=== PATIENT | female | born 1975 | race Caucasian/White ===

== ENCOUNTER 2019-08-30 09:15 | Outpatient (CLI) | payer BC, SELFPAY ==
--- NOTE | ~2019-08-30 | MM_ITS ---
EXAMINATION: MM screening [facility] BI w hailey HISTORY: Screening mammogram TECHNIQUE: Craniocaudal and mediolateral oblique 3-D tomosynthesis images were obtained and synthetic 2-D images were generated. CAD analysis was submitted and interpreted. COMPARISON: 08/25/2018, 08/21/2017 and lateral digital screening mammogram examinations BREAST PARENCHYMAL COMPOSITION: There are scattered areas of fibroglandular density. FINDINGS: There is no evidence of suspicious mass, calcification, or architectural distortion to sugg est malignancy in either breast. There has been no suspicious interval change. IMPRESSION: 1. No mammographic evidence of malignancy. 2. Recommend routine screening mammography in one year. BI-RADS Category 1: Negative Reviewed, dictated and finalized at location B. VISUALIZATION DEVELOPER
== END 2019-08-30 09:16 | disposition home or self-care (01) ==
LOC: ANHIMG 09:18
PROVIDERS: Visit Provider Obstetrics & Gynecology
DX: Z12.31 Encounter for screening mammogram for malignant neoplasm of breast (principal)
CPT/HCPCS: 77063; 77067

== ENCOUNTER 2020-09-01 10:33 | Outpatient (CLI) | payer BC, SELFPAY ==
--- NOTE | ~2020-09-01 | MM_ITS ---
EXAMINATION: MM screening [facility] BI w hailey HISTORY: Screening mammogram TECHNIQUE: Craniocaudal and mediolateral oblique 3-D tomosynthesis images were obtained and synthetic 2-D images were generated. CAD analysis was submitted and interpreted. COMPARISON: 08/30/2019, 08/25/2018, 08/21/2017 BREAST PARENCHYMAL COMPOSITION: The breasts are heterogeneously dense, which may obscure small masses . FINDINGS: There is no evidence of suspicious mass, calcification, or architectural distortion to sugg est malignancy in either breast. There has been no suspicious interval change. IMPRESSION: 1. No mammographic evidence of malignancy. 2. Recommend routine screening mammography in one year. BI-RADS Category 1: Negative Reviewed, dictated and finalized at location A. C SOFTWARE DEVELOPER
== END 2020-09-01 10:34 | disposition home or self-care (01) ==
LOC: ANHIMG 10:36
PROVIDERS: PCP Family Medicine; Visit Provider Obstetrics & Gynecology
DX: Z12.31 Encounter for screening mammogram for malignant neoplasm of breast (principal)
CPT/HCPCS: 77063; 77067

== ENCOUNTER 2021-11-08 12:31 | Outpatient (CLI) | payer BC, SELFPAY ==
[2021-11-08 13:16] LABS: Hematocrit 41.3 % (37.0-47.0); Hemoglobin 14.1 g/dL (12.0-15.0)
== END 2021-11-08 12:32 | disposition home or self-care (01) ==
PROVIDERS: PCP Family Medicine; Visit Provider Obstetrics & Gynecology
DX: Z01.812 Encounter for preprocedural laboratory examination (principal); N92.6 Irregular menstruation, unspecified
CPT/HCPCS: 36415; 85014; 85018

== ENCOUNTER 2021-11-16 00:55 | Day surgery (SDC) | payer BC, SELFPAY ==
[2021-11-08 11:25] VITALS: BMI 35.7
--- NOTE | 2021-11-08 11:36 | PC.NURSE ---
Report to the Outpatient Waiting Room, entrance under the green pavilion located off [facility], at time 7:00 on date 11/16/21. OR Time: 9:00. - You and your visitor will be asked a series of questions to screen for COVID 19 for your protection. - A mask is required within the hospital. One visitor will be allowed to accompany the patient into the hospital. Patients visitor will be instructed to remain with patient at all times or leave the building. We will allow the visitor to come back to the postoperative area when patient is ready. Preoperative COVID Testing Requirements: TO E-MAIL COPY OF POSITIVE TEST No COVID Test needed if: (proof is required; if not received patient will have Rapid Test prior to entry) - Patient has received COVID Vaccine at least 14 days prior to procedure date or - Patient has positive COVID test result within last 90 days of surgery date. COVID Test needed if above criteria is not met Patients may have clear liquids (water, carbonated beverages, clear teas, apple juice) until 3 hours prior to surgery (6:00) with a maximum of 20 ounces. - No food from midnight until time of surgery Take the following medications with a SIP of water the morning of surgery: AMLODIPINE Medications to discontinue per physician: VITAMINS/SUPPLEMENTS Date to take last dose: 11/12/21 Please no make-up, nail sinhala, hairspray, perfume, deodorant, or body powder the day of surgery. No jewelry (including any body piercings) or valuables the day of surgery, leave them at home. Please take a shower or bath the night before, or the morning of, surgery with an antibacterial soap. Wear comfortable, loose fitting clothing. - Jewelry must be removed prior to entering the operating room. Rings and piercings that are not removed may be cut off. - The hospital will not accept responsibility for valuables. - Please leave all valuables, including medications, at home the day of surgery. If you are going home after surgery, a licensed drivers' cash clerk must drive you home. - NO public transportation without another adult. - We recommend that an adult stay with you for 24 hours following discharge. - We also recommend that you do not drive, make important decision, drink alcoholic beverages, or take any drugs that were not prescribed by your health care provider for at least 24 hours after your discharge time. Follow any additional instructions given to you from your surgeon. Telephone instructions given to EFREN ALMANZA and asked if any additional questions and then verbalized understanding. Patient advised to call surgeon office or pre surgery nurse liaison [phone] if any additional questions.
--- NOTE | 2021-11-14 07:53 | P.HP_ITS ---
H&P: HPI History of Present Illness Date/Time: 11/14/21 07:53 This pleasant 45-year-old female status post tubal is admitted for hysteroscopy dilatation curettage for irregular bleeding suspected uterine polyp. She underwent ultrasound after medical therapy is not helpful for bleeding. There appears to be a vascular area consistent with probable polyp. Risks and benefits reviewed. She received the ACOG handout entitled hysteroscopy as well as dilatation curettage respectively. She had all questions answered and asked to proceed Chief Complaint: Excessive vaginal bleeding Review of Systems Review of Systems: All systems reviewed & are unremarkable except as noted in HPI and below [facility] Social History Social History Smoking status: Never smoker Alcohol intake: never Substance use: never Substance use type: does not use Spiritual care concerns: No Meds Home Medications and Allergies Home Medications Medication Instructions Recorded Confirmed Type amlodipine 10 mg PO DAILY 11/08/21 11/08/21 History multivitamin 1 tablet PO DAILY 11/08/21 11/08/21 History Allergies Allergy/AdvReac Type Severity Reaction Status Date / Time No Known Allergies Allergy Verified 11/08/21 11:24 Exam Const: General: no acute distress Eyes: General: appearance normal, both eyes and all related structures Neck: Neck: supple and no JVD Thyroid: thyroid normal Resp: Effort & Inspection: normal respiratory effort Auscultation: clear to auscultation bilaterally Cardio: Rate: regular rate Rhythm: regular rhythm GI: Inspection: non-distended GI Palp: Yes Soft to palpation, No Tenderness to palpation present (GI) and No Guarding due to palpation present (GI) Auscultation: normal bowel sounds : External Female Exam: normal external appearance Speculum Exam - Vagina: normal appearance of the vagina and vaginal bleeding Speculum Exam - Cervix: normal appearance of the cervix Bimanual exam- vagina & uterus: enlarged Bimanual Exam- Adnexa, other: normal adnexae Skin: General skin exam: no rashes or lesions noted Extrem: General: normal to inspection and no edema Psych: Mental Status: mental status grossly normal Affect: normal affect Assessment and Plan Additional Plan Impression: Vaginal bleeding secondary dissect suspected polyp Plan: Hysteroscopy/dilatation curettage
--- NOTE | 2021-11-15 12:57 | WPDANESEPPF ---
Anes - Initial Pre Proc Eval Procedure: Operation Date: 11/16/21 09:00 Proposed Procedures p Hysteroscopy Dilation and Curettage, Polypectomy - Gamal Batista MD Date/Time: 11/15/21 12:57 Surgeon: Gamal Batista MD Pre Op Diagnosis: irregular bleeding, uterine polyps Patient Data Age: 45 Gender: F Height: 1.69 m Weight: 102.06 kg Allergies Allergy/AdvReac Type Severity Reaction Status Date / Time No Known Allergies Allergy Verified 11/16/21 07:13 Home Medications Medication Instructions Recorded Confirmed Type amlodipine 10 mg PO DAILY 11/08/21 11/16/21 History multivitamin 1 tablet PO DAILY 11/08/21 11/16/21 History hydrocodone-acetaminophen 1 tablet PO Q4H PRN #20 tablet 11/16/21 Rx Patient hx anesthesia problems: none Family hx anesthesia problems: none Results Review: All pre-operative results and documents have been reviewed as part of the pre-operative evaluation. PMFSH Past Medical History Medical History (Updated 11/16/21 @ 07:20 by Gamal Batista MD) Hypertension Migraine Surgical History Surgical History (Updated 11/15/21 @ 12:57 by Harinder Denson DO) History of tubal ligation Social History Social History Smoking status: Never smoker Alcohol intake: never Substance use: never Substance use type: does not use Living arrangements: with family Spiritual care concerns: No Anes - Eval Final PreProcedure Day of Procedure 11/15/21 12:57 Patient weight: obese Heart: regular rate and rhythm Lungs: clear to auscultation and normal air movement Airway: Mallampati scale class II Neurological: alert and oriented Last oral intake: >/= 8 hours ASA classification: III Emergent: no Anesthetic plan: proceed Anesthesia type and monitoring: general GIVS and standard monitoring Results Review: All pre-operative results and documents have been reviewed as part of the pre-operative evaluation. Informed Consent: The patient's anesthetic plan and its attendant risks and benefits were discussed with the patient/family/POA. Questions were solicited and answers provided to the satisfaction of the patient/family/POA.
[2021-11-16] MEDS: ACETAMINOPHEN 500 MG TABLET 1000 MG PO (07:18)
--- NOTE | 2021-11-16 07:19 | WPDHPUPDATE1 ---
History and Physical Update Update Date/Time: 11/16/21 07:19 History and Physical has been reviewed, including an updated exam of the patient. There are NO changes in the patient's condition. Risks, benefits, and alternatives have been discussed and questions answered. Patient agrees to proceed with procedure.
[2021-11-16 07:23] VITALS: BP 168/87; PULSE 90; RESP 16; TEMP 36.2; O2SAT 100
[2021-11-16] MEDS: LACTATED RINGERS 1,000 ML 30 ML IV CONT (07:49)
[2021-11-16] MEDS: KETOROLAC 30 MG/ML VIAL (*BKC) IV PUSH (09:11)
--- NOTE | 2021-11-16 09:14 | W.PM.PROC2 ---
Procedure Note - Detailed Date of Procedure 11/16/21 Pre-op Diagnosis irregular bleeding, uterine polyps Post-op Diagnosis Same Procedure Performed Hysteroscopy/dilatation curettage lacks polypectomy Surgeon Gamal Batista MD Anesthesia MAC and Local Indications This is a 45-year-old female with suspected polyp with heavy bleeding Findings Uterus sounded to 10cm. Small uterine polyp and thickened endometrium Description of Procedure Patient was prepped draped sterile fashion placed in dorsal lithotomy position. Under excellent IV sedation weighted speculum placed in posterior fornix vagina. Anterior lip of the cervix grasped with a single-tooth tenaculum. None 2.5cc of 1% xylocaine anesthesia placed at 2, 4, 8, 10:00 a.m. of the cervix. Uterus sounded to 10cm. Serial dilatation with fragmented dilators performed followed by passage of the 5. Mm hysteroscope using normal saline as visualizing medium. Uterine polyps were seen there was a fair amount of blood inside the uterus. The polyp forceps was passed and the polyps removed piecemeal. The uterus was then scraped over the entire 360?. When a good grating sound was heard the term the procedure was terminated sponge, needle, instrument counts were correct. There were no immediate complications. Estimated Blood Loss 5 Drains No Packing No Pathology Yes Complications No immediate complications Condition Stable Disposition PACU
[2021-11-16 09:20] VITALS: BP 133/78; PULSE 74; RESP 16; O2SAT 91
[2021-11-16 09:50] VITALS: BP 137/78; PULSE 65
== END 2021-11-16 10:20 | disposition home or self-care (01) ==
PROVIDERS: PCP Family Medicine; Visit Provider Obstetrics & Gynecology
PROC: 0U5B8ZZ Destruction of Endometrium, Via Natural or Artificial Opening Endoscopic (ICD-10-PCS; CPT 58563; principal; 2021-11-16 09:00)
DX: N92.6 Irregular menstruation, unspecified (principal); N84.0 Polyp of corpus uteri; N92.4 Excessive bleeding in the premenopausal period; I10 Essential (primary) hypertension; E66.9 Obesity, unspecified; Z68.35 Body mass index [BMI] 35.0-35.9, adult
CPT/HCPCS: 58558; 88305; A9270; J1100; J1885; J2250; J2405; J2704; J3010; J7030; J7120

== ENCOUNTER 2022-02-08 07:36 | Outpatient (CLI) | payer BC, SELFPAY ==
--- NOTE | ~2022-02-08 | MM_ITS ---
EXAMINATION: MM screening [facility] BI w hailey HISTORY: Screening mammogram TECHNIQUE: Craniocaudal and mediolateral oblique 3-D tomosynthesis images were obtained and synthetic 2-D images were generated. CAD analysis was submitted and interpreted. COMPARISON: 09/01/2020, 08/30/2019, 08/25/2018 BREAST PARENCHYMAL COMPOSITION: The breasts are heterogeneously dense, which may obscure small masses . FINDINGS: There is no suspicious mass, calcification, or architectural distortion to suggest malignan cy in either breast. There has been no suspicious interval change. IMPRESSION: 1. No mammographic evidence of malignancy. 2. Recommend routine screening mammography in one year. BI-RADS Category 1: Negative Reviewed, dictated and finalized at location A.
== END 2022-02-08 07:37 | disposition home or self-care (01) ==
LOC: ANHIMG 07:37
PROVIDERS: PCP Family Medicine; Visit Provider Obstetrics & Gynecology
DX: Z12.31 Encounter for screening mammogram for malignant neoplasm of breast (principal)
CPT/HCPCS: 77063; 77067

== ENCOUNTER 2024-10-13 07:44 | Outpatient (CLI) | payer BC, SELFPAY ==
--- NOTE | ~2024-10-13 | MM_ITS ---
EXAMINATION: MM screening [facility] BI w hailey HISTORY: Screening TECHNIQUE: Craniocaudal and mediolateral oblique 3-D tomosynthesis images were obtained and synthetic 2-D images were generated. CAD analysis was submitted and interpreted. COMPARISON: Comparison to multiple prior studies sequentially, with oldest reviewed study dated 2017. BREAST PARENCHYMAL COMPOSITION: Not dense: There are scattered areas of fibroglandular density. FINDINGS: There is a focal asymmetry in the central aspect of the right breast, anterior third, on CC view. The left breast is stable without evidence for malignancy. IMPRESSION: 1. Focal right breast asymmetry. 2. Additional mammographic views and possible breast ultrasound are recommended. BI-RADS Category 0: Incomplete: Needs additional imaging evaluation. Reviewed, dictated and finalized at location [] IMPRESSION: 1. Focal right breast asymmetry. 2. Additional mammographic views and possible breast ultrasound are recommended . BI-RADS Category 0: Incomplete: Needs additional imaging evaluation.
--- OUTSIDE RECORDS SUMMARY | 2024-10-13 07:49 | XMS_ITS | Encounter Summary ---
Author Organization [facility] Address [address] [place] [id number] Care Team Providers Care Rag Inspector Name Role Phone Zan Danielle MD Primary Care Provider Reason for Visit * Reason Onset Date Comments Problem 09/07/2024 Encounter Details Date Type Department Care Team (Late st Contact Info) Description 09/07/2024 MyChart Message Enc [facility] Family Medicine - [place] [address], [address] [place] [address] Zan Danielle MD [address] [place] [address] levoFLOXacin 500 MG tablet Social History Tobacco Use Types Packs/Day Years Used Date Smoking Tobacco: Never Passive Smoke Exposure: Never Smokeless Tobacco: Never Alcohol Use Standard Drinks/Week Comments Not Currently 0 (1 standard drink = 0.6 oz pur e alcohol) PHQ-2 Answer Date Recorded Patient Health Questionnaire-2 Score 0 09/06/2024 Comments No Sex and Gender Information Value Date Recorded Sex Assigned at Not on file Legal Sex Female 9:14 PM CDT Gender Identity Not on file Sexual Orientation Not on file documented as of this encounter Progress Notes * Airam Constantino - 09/09/2024 12:10 PM CST Patient calling on status of this request. RING DIRECTOR documented in this encounter Plan of Treatment Not on file documented as of this encounter Visit Diagnoses Not on filedocumented in this encounter Additional Health Concerns Assessment Noted Time PHQ-9 Depression Total Score: 0 08/11/19 25 9:03 AM CATERING DIRECTOR documented as of this encounter Care Teams Rag Inspector Relationship Specialty Start Date End Date Zan Danielle MD [address] [address] PCP - General FAMILY PRACTICE 12/31/21 documented as of this encounter
--- OUTSIDE RECORDS SUMMARY | 2024-10-13 07:49 | XMS_ITS | Clinical Summary ---
Author Organization [facility] Address [address] [place] [address] Care Team Providers Care County Administrator Name Role Phone Zan Danielle MD Primary Care Provider Allergies Active Allergy Reactions Criticality Noted Date Comments Kiwi Fruit Unknown 04/03/2016 Medications lisinopril (PRINIVIL) 20 MG tabletIndications :Primary hypertension TAKE 1 TABLET(20 MG) BY MOUTH DAILY 90 tablet 3 4 Active predniSONE (DELTASONE) 10 mg tabletIndications :Non-recurrent acute suppurative otitis media of right ear without spontaneous rupture of tympanic membrane 3 TABS PO DAILY X 3 DAYS, THEN 2 TABS PO DAILY X 3 DAYS, THEN 1 TAB PO DAILY X 3 DAYS. 18 tablet 5 Active fluticasone propionate (FLONASE) 50 MCG/ACT nasal sprayIndications: Chronic nasal congestion 1 spray by Each Nostril route daily. 16 g 11 5 Active levoFLOXacin (LEVAQUIN) 500 MG tabletIndications :Non-recurrent acute suppurative otitis media of right ear without spontaneous rupture of tympanic membrane Take 1 tablet (500 mg total) by mouth daily for 10 days. 10 tablet 5 09/16/19 25 Active Problems Problem Noted Date Diagnosed Date Impaired fasting glucose 03/10/2024 Non-recurrent acute serous otitis media of both ears 03/11/2022 Pure hypercholesterolemia 01/30/2022 Class 2 obesity due to exces s calories without serious comorbidity with body mass index (BMI) of 36.0 to 36.9 in adult 12/31/2021 Primary hypertension 12/31/2021 Resolved Problems Problem Noted Date Diagnosed Date Resolved Date Routine general medical exam ination at a health care facility 03/10/2024 03/15/2024 Plantar fasciitis 04/30/2016 08/11/2024 Pes equinus, acquired 04/10/20162021 Encounters Date Type Department Care Team Description 09/07/2024 MyChart Message Enc [facility] [address], [address] [place] [phone] Zan Danielle MD levoFLOXacin 500 MG tablet 09/06/2024 10:00 AM CONTACT LENS MANUFACTURER Office Visit [facility] [address], [address] [place] [phone] Zan Danielle MD Acute Note (Congestion, no cold and flu symptoms, pressure in ear) 09/06/2024 Scan HEALTH INFO SRVCS Scanned, Doc Med Group 09/06/2024 Travel 08/11/2024 9:00 AM CONTACT LENS MANUFACTURER Office Visit [facility] [address], [address] [place] [phone] Zan Danielle MD Heart Problem (Sinus congestion, tonsils swollen for the past 2 days.) 08/11/2024 Travel from Last 3 Months Social History Tobacco Use Types Packs/Day Years Used Date Smoking Tobacco: Never Passive Smoke Exposure: Never Smokeless Tobacco: Never Tobacco Cessation:Counseling Given: No Alcohol Use Standard Drinks/Week Comments Not Currently 0 (1 standard drink = 0.6 oz pur e alcohol) PHQ-2 Answer Date Recorded Patient Health Questionnaire-2 Score 0 09/06/2024 Comments No Sex and Gender Information Value Date Recorded Sex Assigned at Not on file Legal Sex Female 9:14 PM CDT Gender Identity Not on file Sexual Orientation Not on file Last Filed Vital Signs Vital Sign Reading Time Taken Comments Blood Pressure 122/80 09/06/2024 9:57 AM CONTACT LENS MANUFACTURER Pulse 77 09/06/2024 9:57 AM CONTACT LENS MANUFACTURER Temperature 36.2 C (97.2 F) 09/06/2024 9:57 AM CONTACT LENS MANUFACTURER Respiratory Rate 18 08/11/2024 9:02 AM CONTACT LENS MANUFACTURER Oxygen Saturation 98% 09/06/2024 9:57 AM CONTACT LENS MANUFACTURER Inhaled Oxygen Concentration - - Weight 102.8 kg (226 lb 9.6 oz) 09/06/2024 9:57 AM CONTACT LENS MANUFACTURER Height 167.6 cm (5' 5.98 ) 08/11/2024 9:02 AM CS T Body Mass Index 36.59 08/11/2024 9:02 AM CONTACT LENS MANUFACTURER Plan of Treatment Health Maintenance Due Date Last Done Comments Cervical Cancer Screening Pa p Smear (Age 30 to 64) Every 3 Years 1976 Colorectal Cancer Screening Colonoscopy (10 Years) 1976 Hepatitis C 1994 DTaP, Tdap and Td Vaccines ( 1 - Tdap) 12/31/1995 Hepatitis B Vaccines (1 of 3 - 19+ 3-dose series) 12/31/1995 Cervical Cancer Screening Pa p with HPV Testing (Age 30 to 64) Every 5 Years 2006 Cervical Cancer Screening wi th HPV 2006 Mammogram Screening 02/09/2024 02/08/2022 COVID-19 Vaccine ( - 2023-2 5 season) 2024 Influenza Adult (#1) 2024 Annual Physical 03/10/2025 03/10/2024, 03/26/2023 PHQ-2 (Physician [place]) Completed 09/06/2024 Meningococcal B Vaccine Aged Out No l onger eligible based on patient's age to complete this topic Meningococcal Vaccine Aged Out No ayse lena eligible based on patient's age to complete this topic Pneumococcal Vaccine: Pediatrics (0 to 5 Years) and At-Risk Patients (6 to 64 Years) Aged Out No longer eligible b ased on patient's age to complete this topic RSV Immunizations Under 20 Months Aged Out No longer eligible b ased on patient's age to complete this topic Procedures Procedure Name Priority Date/Time Associated Diagnosis Comments CORONAVIRUS (COVID-19) INFLUENZA A & B ANTIGEN IA PANEL Routine 08/11/2024 Acute cough MAMMOGRAM GENERIC (SCAN ORDER) 02/08/2022 from Last 3 Months or Most Recently Relevant to Health Maintenance Results * CORONAVIRUS (COVID-19) INFLUENZA A & B ANTIGEN IA PANEL (08/11/2024) CORONAVIRUS ANTIGEN IA NEGATIVE NEGATIVE [facility] [place] [place] INFLUENZA A NEGATIVE NEGATIVE [facility] [place] [place] INFLUENZA B NEGATIVE NEGATIVE [facility] [place] [place] Internal Control: VALID VALID [facility] [place] [place] NASAL STRUCTURE / Unknown 08/11/2024 Zan Danielle MD MICROBIOLOGY - GENERAL ORDERABLES Final Result [facility] [place] [address] [place] [address], * MAMMOGRAM GENERIC (02/08/2022) Anatomical Region Laterality Modality Other 02/08/2022 Narrative 02/08/2022 Ordered by an unspecified provider. us Documents Scanned SCANNING Final Result from Last 3 Months or Most Recently Relevant to Health Maintenance Insurance [facility] Care Teams County Administrator Relationship Specialty Start Date End Date Zan Danielle MD [address] [place] [address] PCP - General FAMILY PRACTICE 12/31/21
--- OUTSIDE RECORDS SUMMARY | 2024-10-13 07:49 | XMS_ITS | Encounter Summary ---
Author Organization [facility] Address [address] [place] [address] Care Team Providers Care Starch Treating Assistant Name Role Phone Christopher Palumbo MD Primary Care Provider [phone] Zan Danielle MD Primary Care Provider Encounter Details Date Type Department Care Team (Late st Contact Info) Description 05/01/2021 [employer] Message [facility] Patient Accounts [address] [place] [address] [facility] Provider Financial Assistance application Social History Tobacco Use Types Packs/Day Years Used Date Smoking Tobacco: Never Smokeless Tobacco: Never Alcohol Use Standard Drinks/Week Comments Not Currently 0 (1 standard drink = 0.6 oz pur e alcohol) Comments No Sex and Gender Information Value Date Recorded Sex Assigned at Not on file Legal Sex Female 9:14 PM CDT Gender Identity Not on file Sexual Orientation Not on file COVID-19 Exposure Response Date Recorded In the last month, have you been in contact with someone who was confirmed or suspected to have Coronavirus / COVID-19? Yes 05/02/2021 12:03 PM CDT documented as of this encounter Plan of Treatment Not on file documented as of this encounter Visit Diagnoses Not on filedocumented in this encounter Additional Health Concerns Infection Onset Date Last Indicated Resolved Time COVID-19 Rule Out 05/02/2021 05/02/2021 05/04/2021 1:10 AM CDT COVID-19 Rule Out 05/09/2021 05/09/2021 05/10/2021 1:51 PM CDT COVID-19 Rule Out 07/12/2024 07/12/202407/12/2024 10:20 AM ELECTRICAL JOURNEYMAN COVID-19 Rule Out 08/11/2024 08/11/2024 08/11/2024 9:47 AM ELECTRICAL JOURNEYMAN documented as of this encounter Care Teams Starch Treating Assistant Relationship Specialty Start Date End Date Christopher Palumbo MD PCP - General FAMILY PRACTICE 12/31/19 12/30/21 Zan Danielle MD [address] [facility] [address] [place] [address] PCP - General FAMILY PRACTICE 12/31/21 documented as of this encounter
== END 2024-10-13 07:45 | disposition home or self-care (01) ==
LOC: ANHIMG 07:46
PROVIDERS: PCP Family Medicine; Visit Provider Obstetrics & Gynecology
DX: Z12.31 Encounter for screening mammogram for malignant neoplasm of breast (principal); Z98.82 Breast implant status; R92.8 Other abnormal and inconclusive findings on diagnostic imaging of breast
CPT/HCPCS: 77063; 77067

== ENCOUNTER 2024-10-21 13:26 | Outpatient (CLI) | payer BC, SELFPAY ==
--- NOTE | ~2024-10-21 | MMUS_ITS ---
EXAMINATION: MM diagnostic eleni RT w hailey, US breast RT limited HISTORY: 48-year-old woman with a significant family history of breast cancer (diagnosed in the patie nts maternal aunt, premenopausal) presents for diagnostic evaluation of a focal asymmetry in the cent ral aspect of the right breast, anterior third, detected primarily on the CC view on screening mammog renaldo dated 10/13/2024. TECHNIQUE: Additional 3-D tomosynthesis images of right breast were performed and synthetic 2-D image s were generated. CAD analysis was submitted and interpreted. High resolution focused right breast ultrasound was performed. COMPARISON: 10/13/2024 and dating back to 08/30/2019. BREAST PARENCHYMAL COMPOSITION:Not Dense. There are scattered areas of fibroglandular density. FINDINGS: MAMMOGRAPHIC FINDINGS: Multiple irregularly shaped foci, some tubular, persist with spot compression in the central aspect o f the right breast for which focused ultrasound will be performed. ULTRASOUND: At the 8:00 position of the right breast approximately 4 cm from the nipple is a reniform shaped focu s of decreased echogenicity measuring 4.0 x 2.6 x 1.6 mm, likely representing an intramammary lymph n ode for which no further follow-up is needed. At the 9:00 position of the right breast approximately 4 cm from the nipple is a mostly well-circumsc ribed anechoic avascular focus measuring 3 x 3 x 2.5 mm. No posterior acoustic shadowing or enhanceme nt is identified. Despite the lack of posterior echogenicity, this focus has the appearance of a simp le cyst for which no further follow-up is needed. At the 10:00 position of the right breast approximately 3 cm from the nipple are a cluster of irregul pia-shaped, somewhat tubular, anechoic avascular structures measuring a maximal medial to lateral me asurement of 8 mm with the bulbous portion measuring 3.4 mm x 5.3 mm (anterior to posterior x cranial to caudal dimension), possibly representing ductal ectasia. This shape, corresponds to the abnormali ties seen on mammography. Sonographic evaluation of the remainder of the upper, primarily outer right breast demonstrates other das benign fibroglandular structures without cystic or solid lesion of concern. IMPRESSION: Findings within the upper outer quadrant of the right breast, which are most likely benign for which short-term sonographic follow-up is recommended for confirmation of their benignity versus ultimate r esolution. Focused right breast ultrasound in 6 months is recommended. BI-RADS category 3, probably benign findings. Reviewed, dictated and finalized at location A. IMPRESSION: Findings within the upper outer quadrant of the right breast, which are most li vashti benign for which short-term sonographic follow-up is recommended for confi rmation of their benignity versus ultimate resolution. Focused right breast ultrasound in 6 months is recommended. BI-RADS category 3, probably benign findings.
--- OUTSIDE RECORDS SUMMARY | 2024-10-21 14:17 | XMS_ITS | Clinical Summary ---
Author Organization [facility] Address [address] [place] [address] Care Team Providers Care Pillar Worker Name Role Phone Zan Danielle MD Primary [...] route daily. 16 g 11 5 Active Active Problems Problem Noted Date Diagnosed Date [...] Plantar fasciitis 04/30/2016 08/11/2024 Pes equinus, acquired 04/10/2016 07/06/ 2022 Encounters Date Type Department Care Team Description 09/07/2024 MyChart Message Enc [facility] [address] [facility] [address], [address] [place] [phone] Zan Danielle MD levoFLOXacin 500 MG tablet 09/06/2024 10:00 AM MARKER HAND Office Visit [facility] [address] [facility], [address] [place] [phone] Zan Danielle MD Acute Note (Congestion, no cold and flu symptoms, pressure in ear) 09/06/2024 Scan [facility] SRVCS Scanned, [facility] 09/06/2024 Travel 08/11/2024 9:00 AM MARKER HAND Office Visit [facility] [address] [facility], [address] [place] [phone] Zan Danielle MD Heart Problem (Sinus congestion, [...] Comments Blood Pressure 122/80 09/06/2024 9:57 AM MARKER HAND Pulse 77 09/06/2024 9:57 AM MARKER HAND Temperature 36.2 C (97.2 F) 09/06/2024 9:57 AM MARKER HAND Respiratory Rate 18 08/11/2024 9:02 AM MARKER HAND Oxygen Saturation 98% 09/06/2024 9:57 AM MARKER HAND Inhaled Oxygen Concentration - - Weight 102.8 kg (226 lb 9.6 oz) 09/06/2024 9:57 AM MARKER HAND Height 167.6 cm (5' 5.98 ) 08/11/2024 9:02 AM CS T Body Mass Index 36.59 08/11/2024 9:02 AM MARKER HAND Plan of Treatment Health Maintenance Due Date [...] Annual Physical 03/10/2025 03/10/2024, 03/26/2023 PHQ-2 (Physician [place]) Completed 09/06/2024 Meningococcal B Vaccine Aged Out [...] [place] Internal Control: VALID VALID MG[facility] [place], [place] NASAL STRUCTURE / Unknown 08/11/2024 Zan Danielle MD MICROBIOLOGY - GENERAL ORDERABLES Final Result MG-N [place]OL[place], [place] [address] [place] [address], * MAMMOGRAM GENERIC (02/08/2022) Anatomical Region Laterality Modality Other 02/08/2022 Narrative 02/08/2022 Ordered by an unspecified provider. Documents Scanned SCANNING Final Result from Last 3 Months or Most Recently Relevant to Health Maintenance Insurance Care Teams Pillar Worker Relationship Specialty Start Date End Date Zan Danielle MD [address] [place], [place] [id number] PCP - General FAMILY PRACTICE 12/31/21
--- OUTSIDE RECORDS SUMMARY | 2024-10-21 14:18 | XMS_ITS | Encounter Summary ---
Author Organization [facility] Address [address] [place] [address] Care Team Providers Care Graphic Coordinator Name Role Phone Zan Danielle MD Primary Care Provider Reason for Visit * Reason Onset Date Comments Problem 09/07/2024 Encounter Details Date Type Department Care Team (Late st Contact Info) Description 09/07/2024 MyChart Message Enc [facility] Family Medicine - [place] [address], [address] [place] [address] Zan Danielle MD [address] [place] [address] levoFLOXacin 500 MG tablet Social [...] Patient calling on status of this request. OPERATOR INSULATOR documented in this encounter Plan of Treatment Not on file documented as of this encounter Visit Diagnoses Not on filedocumented in this encounter Additional Health Concerns Assessment Noted Time PHQ-9 Depression Total Score: 0 08/11/19 25 9:03 AM COAT OPERATOR INSULATOR documented as of this encounter Care Teams Graphic Coordinator Relationship Specialty Start Date End Date Zan Danielle MD [address] [address] PCP - General FAMILY PRACTICE 12/31/21 documented as of this encounter
--- OUTSIDE RECORDS SUMMARY | 2024-10-21 14:18 | XMS_ITS | Encounter Summary ---
Author Organization [facility] Address [address] [place] [address] Care Team Providers Care Front Window Cashier Name Role Phone Christopher Palumbo MD Primary Care Provider [phone] Zan Danielle MD Primary Care Provider Encounter Details Date Type Department Care Team (Late st Contact Info) Description 05/01/2021 [employer]UP Message [facility] Patient Accounts [address] [place] [address] [facility] Provider Financial Assistance application Social History Tobacco [...] COVID-19 Rule Out 07/12/2024 07/12/202407/12/2024 10:20 AM MARINE GEAR KEEPER COVID-19 Rule Out 08/11/2024 08/11/2024 08/11/2024 9:47 AM MARINE GEAR KEEPER documented as of this encounter Care Teams Front Window Cashier Relationship Specialty Start Date End Date Christopher Palumbo MD PCP - General FAMILY PRACTICE 12/31/19 12/30/21 Zan Danielle MD [address] [facility] [address] [place] [address] PCP - General FAMILY PRACTICE 12/31/21 documented as of this encounter
== END 2024-10-21 13:27 | disposition home or self-care (01) ==
PROVIDERS: PCP Family Medicine; Visit Provider Obstetrics & Gynecology
DX: R92.8 Other abnormal and inconclusive findings on diagnostic imaging of breast (principal)
CPT/HCPCS: 76642; 77061; 77065; G0279

== ENCOUNTER 2025-04-22 11:13 | Outpatient (CLI) | payer BC, SELFPAY ==
--- NOTE | ~2025-04-22 | US_ITS ---
EXAMINATION: US breast RT limited INDICATION: 49-year old female; BI-RADS 3, evaluate probably benign right breast findings. COMPARISON: 10/21/2024 TECHNIQUE: Targeted sonographic evaluation of the probably benign masses in the outer right breast was completed. FINDINGS: A 0.3 cm Hypoechoic mass at 8:00, 4 cm from the nipple in the RIGHT breast redemonstrated has not significantly changed. A 0.3 cm cyst at 9:00, 4 cm from the nipple in the RIGHT breast redemonstrated has not significantly changed. A 0.5 cm Hypoechoic mass at 10:00, 3 cm from the nipple in the RIGHT breast redemonstrated has not significantly changed. IMPRESSION: Probably benign right breast masses have not significantly changed. RECOMMENDATION: Continue imaging surveillance with bilateral diagnostic mammography and right breast ultrasound in 6 months. BI-RADS 3, PROBABLY BENIGN Reviewed, dictated and finalized at location B. IMPRESSION: Probably benign right breast masses have not significantly changed. RECOMMENDATION: Continue imaging surveillance with bilateral diagnostic mammography and right b reast ultrasound in 6 months. BI-RADS 3, PROBABLY BENIGN
--- OUTSIDE RECORDS SUMMARY | 2025-04-22 11:17 | XMS_ITS | Encounter Summary ---
Author Organization [facility] Address [address] [place] [address] Care Team Providers Care Customer Development Representative Name Role Phone Christopher Palumbo MD Primary Care Provider [phone] Zan Danielle MD Primary Care Provider Encounter Details Date Type Department Care Team (Late st Contact Info) Description 05/01/2021 [employer] Message [facility] Patient Accounts [address] [place] [address] [facility] Provider Financial Assistance application Social History Tobacco [...] COVID-19 Rule Out 07/12/2024 07/12/202407/12/2024 10:20 AM JUMPBASTING COLLAR BASTER COVID-19 Rule Out 08/11/2024 08/11/2024 08/11/2024 9:47 AM JUMPBASTING COLLAR BASTER Respiratory Rule Out 11/18/2024 11/18/2024 025 8:43 AM CDT Respiratory Rule Out 03/18/2025 03/18/2025 025 8:32 AM CDT documented as of this encounter Care Teams Customer Development Representative Relationship Specialty Start Date End Date Christopher Palumbo MD PCP - General FAMILY PRACTICE 12/31/19 12/30/21 Zan Danielle MD [address] [facility] [address] [address] PCP - General FAMILY PRACTICE 12/31/21 documented as of this encounter
--- OUTSIDE RECORDS SUMMARY | 2025-04-22 11:17 | XMS_ITS | Encounter Summary ---
Author Organization [facility] Address [address] [place] [address] Care Team Providers Care Immigration Lawyer Name Role Phone Zan Danielle MD Primary Care Provider Reason for Visit * Reason Onset Date Comments Problem 11/23/2024 Encounter Details Date Type Department Care Team (Late st Contact Info) Description 11/23/2024 MyChart Message Enc [facility] Medical Group Family Medicine - [place] [address], [address] [place] [address] Zan Danielle MD [address] [place] [address] Right ear Social History Tobacco Use Types Packs/Day Years Used Date Smoking Tobacco: Never Passive Smoke Exposure: Never Smokeless Tobacco: Never Alcohol Use Standard Drinks/Week Comments Not Currently 0 (1 standard drink = 0.6 oz pur e alcohol) PHQ-2 Answer Date Recorded Patient Health Questionnaire-2 Score 0 11/18/2024 Comments No Sex and Gender Information Value Date Recorded Sex Assigned at Not on file Legal Sex Female 9:14 PM CDT Gender Identity Not on file Sexual Orientation Not on file documented as of this encounter Progress Notes * Blanca Granados - 11/25/2024 2:58 PM CDT Pt is calling, she is wanting to know if dr can prescribe the Prednisone and not the Medrol Dosepak. [facility] Cb# [phone] documented in this encounter Plan of Treatment Not on file documented as of this encounter Visit Diagnoses Not on filedocumented in this encounter Additional Health Concerns Infection Onset Date Last Indicated Resolved Time Respiratory Rule Out 03/18/2025 03/18/2025 025 8:32 AM CDT Assessment Noted Time PHQ-9 Depression Total Score: 0 11/19/19 25 8:04 AM CDT documented as of this encounter Care Teams Immigration Lawyer Relationship Specialty Start Date End Date Zan Danielle MD [address] [id number] PCP - General FAMILY PRACTICE 12/31/21 documented as of this encounter
--- OUTSIDE RECORDS SUMMARY | 2025-04-22 11:17 | XMS_ITS | Clinical Summary ---
Author Organization [facility] Address [address] [place] [address] Care Team Providers Care Parking Enforcement Officer Name Role Phone Zan Danielle MD Primary Care Provider Allergies Active Allergy Reactions Criticality Noted Date Comments Kiwi Fruit Unknown 04/03/2016 Medications fluticasone propionate (FLONASE) 50 MCG/ACT nasal sprayIndications: Chronic nasal congestion 1 spray by Each Nostril route daily. 16 g 11 5 Active lisinopril (PRINIVIL) 20 MG tabletIndications :Primary hypertension TAKE 1 TABLET(20 MG) BY MOUTH DAILY 90 tablet 3 Active fexofenadine (PAT) 180 MG tablet Take 1 tablet (180 mg total) by mouth daily. Active Active Problems Problem Noted Date Diagnosed Date Severe obstructive sleep apnea 03/18/2025 Impaired fasting glucose 03/10/2024 Non-recurrent acute serous [...] Encounters Date Type Department Care Team Description 03/19/2025 Telephone [facility] Family Medicine - [place] [address] [facility], [address] [place] [phone] Zan Danielle MD Advice (Nurse Triage - After Hours ([id number])/) 03/18/2025 8:00 AM CDT Office Visit [facility] Family Medicine - [place] [address], [address] [place] [phone] Zan Danielle MD Sore Throat (Onset: 03/17/2025. Patient was sent home from work for chills, then last night she was getting hot. The back pain started. Grand kids were sick last week/Patient denies cough. ) 03/18/2025 Travel from Last 3 Months Social History Tobacco Use Types Packs/Day Years Used Date Smoking Tobacco: Never Passive Smoke Exposure: Never Smokeless Tobacco: Never Tobacco Cessation:Counseling Given: No Alcohol Use Standard Drinks/Week Comments Never 0 (1 standard drink = 0.6 oz pur e alcohol) PHQ-2 Answer Date Recorded Patient Health Questionnaire-2 Score 0 03/18/2025 Comments No Sex and Gender Information Value Date Recorded Sex Assigned at Not on file Legal Sex Female 9:14 PM CDT Gender Identity Not on file Sexual Orientation Not on file Last Filed Vital Signs Vital Sign Reading Time Taken Comments Blood Pressure 102/82 03/18/2025 7:57 AM CDT Pulse 95 03/18/2025 7:57 AM CDT Temperature 36.6 C (97.8 F) 03/18/2025 7:57 AM CDT Respiratory Rate 18 03/18/2025 7:57 AM CDT Oxygen Saturation 97% 03/18/2025 7:57 AM CDT Inhaled Oxygen Concentration - - Weight 101.5 kg (223 lb 12.8 oz) 03/18/2025 7:57 AM CDT Height 167.6 cm (5' 5.98) 03/18/2025 7:57 AM CD T Body Mass Index 36.14 03/18/2025 7:57 AM CDT Plan of Treatment Health Maintenance Due Date Last Done Comments Cervical Cancer Screening Pa p Smear (Age 30 to 64) Every 3 Years 1976 Colorectal Cancer Screening Colonoscopy (10 Years) 1976 Hepatitis C 1994 DTaP, Tdap and Td Vaccines ( 1 - Tdap) 12/31/1995 Hepatitis B Vaccines (1 of 3 - 19+ 3-dose series) 12/31/1995 Cervical Cancer Screening Pa luis with HPV Testing (Age 30 to 64) Every 5 Years 2006 Cervical Cancer Screening wi th HPV 2006 Annual Physical 03/10/2025 03/10/2024, 03/26/2023 COVID-19 Vaccine (1 - 2023-2 5 season) 2025 Mammogram Screening 10/21/2026 10/21/2024, 10/13/2024, 02/08/2022 PHQ-2 (Physician [place]) Completed 03/18/2025 Meningococcal B Vaccine Aged Out No l onger eligible based on patient's age to complete this topic Meningococcal Vaccine Aged Out No ayse lena eligible based on patient's age to complete this topic Pneumococcal Vaccine: Pediatrics (0 to 5 Years) and At-Risk Patients (6 to 49 Years) Aged Out No longer eligible b ased on patient's age to complete this topic RSV Immunizations Under 20 Months Aged Out No longer eligible b ased on patient's age to complete this topic Procedures Procedure Name Priority Date/Time Associated Diagnosis Comments CORONAVIRUS (COVID-19) INFLUENZA A & B ANTIGEN IA PANEL Routine 03/18/2025 8:31 AM CDT Acute sore throat STREP A RAPID Routine 03/18/2025 8:15 AM CDT Acute sore throat HEMOGLOBIN, GLYCOSYLATED Routine 03/18/2025 8:12 AM CDT Impaired fasting glucose COLLECT.CAPILLARY (FNGR,HEEL,EAR) Routine 03/18/2025 7:56 AM CDT Impaired fasting glucose MAMMOGRAM GENERIC (SCAN ORDER) 10/21/2024 from Last 3 Months or Most Recently Relevant to Health Maintenance Results * CORONAVIRUS (COVID-19) INFLUENZA A & B ANTIGEN IA PANEL (03/18/2025 8:31 AM CDT) CORONAVIRUS ANTIGEN IA NEGATIVE NEGATIVE MG[facility] [place], [place] INFLUENZA A NEGATIVE NEGATIVE MG-[facility] [place], [place] INFLUENZA B NEGATIVE NEGATIVE [facility] [place], [place] Internal Control: VALID VALID MG-[facility] [place], [place] NASAL STRUCTURE / Unknown 03/18/2025 8:31 AM CDT Zan Danielle MD MICROBIOLOGY - GENERAL ORDERABLES Final Result [facility] [place], [place] [address] [place] [address], * STREP A RAPID (03/18/2025 8:15 AM CDT) RAPID STREP TEST NEGATIVE NEGATIVE [facility] [place], [place] Internal Control: VALID VALID MG-[facility] [place], [place] STRUCTURE OF ANTERIOR REGION OF NECK / Unknown 03/18/2025 8:15 AM CDT Zan Danielle MD MICROBIOLOGY - GENERAL ORDERABLES Final Result Performing Organization Address City/[facility]/ZIP Co de Phone Number MG-N [place], [place] [address] [place] [address], [place] [phone] * A1C (BACK OFFICE) (03/18/2025 8:12 AM CDT) HGB A1C 5.5 % MG[facility] [place], [place] 03/18/2025 8:12 AM CDT Zan Danielle MD LABORATORY Final R esult Performing Organization Address City/[facility]/ZIP Co de Phone Number [facility] [place], [place] [address] [place] [address], [place] [phone] * MAMMOGRAM GENERIC (SCAN ORDER) (10/21/2024) Anatomical Region Laterality Modality Other 10/21/2024 us Doc Med Group Scanned SCANNING Final Resu lt from Last 3 Months or Most Recently Relevant to Health Maintenance Insurance [facility] Care Teams Parking Enforcement Officer Relationship Specialty Start Date End Date Zan Danielle MD [address] [facility] [address] [place], [place] [phone] PCP - General FAMILY PRACTICE 12/31/21
--- OUTSIDE RECORDS SUMMARY | 2025-04-22 11:17 | XMS_ITS | Encounter Summary ---
Author Organization [facility] Address [address] [place] [address] Care Team Providers Care Printing Press Machinist Name Role Phone Zan Danielle MD Primary Care Provider Reason for Visit * Reason Onset Date Comments Problem 09/07/2024 Encounter Details Date Type Department Care Team (Late st Contact Info) Description 09/07/2024 MyChart Message Enc [facility] Family Medicine - [place] [address] [place] [address] Zan Danielle MD [address] [place] [address] levoFLOXacin 500 MG tablet Social [...] Patient calling on status of this request. LITATION TRAINING SPECIALIST documented in this encounter Plan of Treatment Not on file documented as of this encounter Visit Diagnoses Not on filedocumented in this encounter Additional Health Concerns Infection Onset Date Last Indicated Resolved Time Respiratory Rule Out 11/18/2024 11/18/2024 025 8:43 AM CDT Respiratory Rule Out 03/18/2025 03/18/2025 025 8:32 AM CDT Assessment Noted Time PHQ-9 Depression Total Score: 0 08/11/19 25 9:03 AM HABILITATION TRAINING SPECIALIST documented as of this encounter Care Teams Printing Press Machinist Relationship Specialty Start Date End Date Zan Danielle MD [address], [place] [id number] PCP - General FAMILY PRACTICE 12/31/21 documented as of this encounter
== END 2025-04-22 11:14 | disposition home or self-care (01) ==
LOC: ANHFOHIMG 11:14
PROVIDERS: PCP Family Medicine; Visit Provider Obstetrics & Gynecology
DX: R92.8 Other abnormal and inconclusive findings on diagnostic imaging of breast (principal)
CPT/HCPCS: 76642